=== PATIENT | female | born 1960 | race Caucasian/White ===

== ENCOUNTER 2017-01-15 13:29 | Outpatient (CLI) | payer OTHER ==
--- NOTE | 2017-01-19 20:27 | Mammography Report ---
DIGITAL SCREENING MAMMOGRAPHY: 01/15/2017 COMPARISON: 07/27/2014, 06/10/2013, 12/01/2009, 10/01/2007. Bilateral digital CC, exaggerated CC, and MLO projections are obtained of the breasts. The breast tissue is heterogeneously dense. There is no dominant mass, architectural distortion, ski n thickening, suspicious microcalcifications, or significant interval change compared to the prior st udy. IMPRESSION: NEGATIVE. BIRADS CATEGORY: 1, NEGATIVE. SUGGEST RETURN TO ROUTINE SCREENING IN ONE YEAR. STANDARD QUALIFYING STATEMENTS 1. This examination was reviewed with the aid of Computed-Aided Detection (CAD). 2. A negative or benign imaging report should not delay biopsy if clinically suspicious findings are present. Consider surgical consultation if warranted. More than 5% of cancers are not identified b y imaging. 3. Dense breasts may obscure an underlying neoplasm. JOB #: [id number] EXT JOB #:[id number]
== END 2017-01-15 13:30 | disposition home or self-care (01) ==
LOC: DI.N 13:29
PROVIDERS: ATTEND Physician Assistant
DX: Z12.31 Encounter for screening mammogram for malignant neoplasm of breast (principal)
CPT/HCPCS: 77067

== ENCOUNTER 2020-03-16 16:42 | Outpatient (CLI) | payer OTHER | END 2020-03-16 16:43 | disposition home or self-care (01) | LOC: COV 16:42 | PROVIDERS: ATTEND Family Medicine | DX: Z20.828 Contact with and (suspected) exposure to other viral communicable diseases (principal) ==

== ENCOUNTER 2022-07-15 11:58 | Day surgery (SDC) | payer OTHER ==
[2022-07-15] MEDS ORDERED: PROPOFOL 500 MG/50 ML 500 MG/50 ML VIAL ONE (12:03)
[2022-07-15] MEDS ORDERED: LACTATED RINGERS 1,000 ML IV ONE (12:34)
--- NOTE | 2022-07-15 12:36 | ANESTHESIA ---
Pre-Anesthesia VS, & Labs - Diagnosis Screening exam, family history of colon cancer - Procedure colonoscopy Vital Signs: Temp Pulse Resp BP Pulse Ox O2 Flow Rate 36.2 C L 110 H 15 139/105 H 97 07/15/22 12:19 07/15/22 12:19 07/15/22 12:19 07/15/22 12:19 07/15/22 12:19 Height: 5 ft 6.5 in Weight (kg): 74 kg Body Mass Index: 25.9 BMI Classification: Overweight - NPO >8 hours - Is Patient ?: No Home Medications and Allergies Home Medications: Ambulatory Orders No Known Home Medications 07/14/22 No Known Home Medications 07/14/22 Allergies/Adverse Reactions: Allergies Allergy/AdvReac Type Severity Reaction Status Date / Time No Known Drug Allergies Allergy Verified 07/14/22 13:17 Anes History & Medical History - Anesthetic History Anesthesia Complications: reports: No previous complications - Medical History Cardiovascular: reports: None Pulmonary: reports: None Gastrointestinal: reports: None Urinary: reports: None Neuro: reports: None Musculoskeletal: reports: None Endocrine/Autoimmune: reports: None Skin: reports: None Smoking Status: Never smoker Psychosocial: reports: No issues indicated History of Cancer?: No - Surgical History Gynecologic: reports: Hysterectomy Orthopedic: reports: Knee replacement Exam General: Alert, Oriented x3, Cooperative, No acute distress Dental: WNL Mouth Openin Fingerbreadth Neck Mobility: Normal Mallampati classification: II Thyromental Distance: 4-6 cm Mental/Cognitive Status: Alert/Oriented X3, Normal for patient Plan Anesthesia Type: General, Total IV Consent for Procedure(s) Verified and Reviewed: Yes Code Status: Attempt Resuscitation ASA classification: 1-Healthy patient Is this case an emergency?: No
[2022-07-15] MEDS ORDERED: LACTATED RINGERS 500 ML IV ONE (13:09)
--- NOTE | 2022-07-15 13:27 | ANESTHESIA POST OP EVALUATION ---
Anesthesia Post Eval - Post Anesthesia Eval Vitals: Last Vital Signs Temp 36.4 C L 07/15/22 13:09 Pulse 97 07/15/22 13:09 Resp 16 07/15/22 13:09 BP 117/84 H 07/15/22 13:09 Pulse Ox 98 07/15/22 13:09 O2 Flow Rate CV Function Including HR & BP: Stable Pain Control: Satisfactory Nausea & Vomiting: Negative Mental Status: Baseline Respiratory Status: Airway Patent Hydration Status: Satisfactory Anesthesia Complications: None
[2022-07-15 13:43] VITALS: BP 116/86
== END 2022-07-15 11:59 | disposition home or self-care (01) ==
LOC: SDS 11:58
PROVIDERS: ATTEND Surgery
PROC: 0DBL8ZZ Excision of Transverse Colon, Via Natural or Artificial Opening Endoscopic (ICD-10-PCS; 2022-07-15)
PROC: 0DBN8ZZ Excision of Sigmoid Colon, Via Natural or Artificial Opening Endoscopic (ICD-10-PCS; 2022-07-15)
PROC: 0DBM8ZZ Excision of Descending Colon, Via Natural or Artificial Opening Endoscopic (ICD-10-PCS; principal; 2022-07-15 12:30)
DX: Z12.11 Encounter for screening for malignant neoplasm of colon (principal); D12.3 Benign neoplasm of transverse colon; D12.4 Benign neoplasm of descending colon; D12.5 Benign neoplasm of sigmoid colon; Z80.0 Family history of malignant neoplasm of digestive organs
CPT/HCPCS: 45380; 45385; J7120